=== PATIENT | female | born 1970 | race Caucasian/White ===

== ENCOUNTER 2020-06-07 13:01 | Day surgery (SDC) | payer OTHER ==
[~2020-06-07] VITALS: Ht 157.5 cm; Wt 69.8 kg
[~2020-06-07 13:01] MED LIST: EFFEXOR XR75 MG PO
--- NOTE | 2020-06-07 14:53 | NUR ---
06/07/20 1453 hSe Cotton 1448- PT TO PACU IN LL POSITION. EYES OPEN. ALERT AND ORIENTED. BREATHING EASY AND UNLABORED ON 2 L O2 VIA NC. VSS. 1452- PT EDUCATED ON PACU GOALS AND ENCOURAGED TO PASS GAS. BREATHING EASY AND UNLABORED. SPO2 >95%
--- NOTE | 2020-06-07 21:34 | OR ---
[facility] [address] [place], [place] [address] Signed DATE OF OPERATION: 06/07/2020 SURGEON: Elham Bhat MD PREOPERATIVE DIAGNOSIS: Colon screening; family history of colon cancer (paternal and maternal grandmother). POSTOPERATIVE DIAGNOSIS: Normal colon to cecum. PROCEDURE: Total colonoscopy to cecum. ANESTHESIA: Intravenous sedation, fentanyl 100 mcg and Versed 4 mg. INDICATIONS: This 50-year-old white woman is a patient of Dr. Henri Kenyon and underwent colonoscopy by me in July of 2007, which was normal. At that time, she was seen for family history of colon cancer in multiple family members including her paternal grandmother and her paternal aunt. She has no symptoms of bleeding, diarrhea, or constipation. She is admitted to undergo colonoscopy. She understands the risks of bleeding, infection, and perforation. FINDINGS: The prep was excellent. Complete colonoscopy was undertaken to the cecum without question. She had no findings of polyps, diverticular formation, colitis, or cancer. DESCRIPTION OF PROCEDURE: The patient was brought to the endoscopy suite and placed in lateral decubitus position, given intravenous sedation to the point of slurred speech and nystagmus. Full cardiopulmonary monitoring was maintained. Digital rectal examination was normal. An Olympus video colonoscope was passed into the rectum and manipulated throughout the colon, ultimately intubating the cecum. The ileocecal valve and appendiceal orifice were normal. The scope was withdrawn from that point and examination throughout showed no sign of abnormality specifically no polyps, diverticular formation, colitis, or cancer. Retroflex view was normal as well. The scope was removed. The patient was taken to the recovery room in good condition. Electronically Signed By: ELHAM BHAT MD 06/07/20 2134 PATIENT NAME: JAJA SCOTT OPERATIVE REPORT DATE OF : 68 REPORT #: [id number] PHYSICIAN: ELHAM BHAT MD PCP: HENRI KENYON MD REPORT IS CONFIDENTIAL AND NOT TO BE RELEASED WITHOUT AUTHORIZATION [facility] [address] [facility] [place], [place] [address] Signed CONCLUDING DIAGNOSIS: Normal colon to cecum. PLAN: To return to the ongoing care of Dr. Kenyon. I would recommend routine surveillance colonoscopy in 5 years based on family history or sooner if symptoms should develop. MD CADE Martin/MODL /[id number] cc: Henri Kenyon MD Copies: HENRI KENYON MD ~ Electronically Signed By: ELHAM BHAT MD 06/07/20 2134 PATIENT NAME: JAJA SCOTT OPERATIVE REPORT DATE OF : 68 REPORT #: [id number] PHYSICIAN: ELHAM BHAT MD PCP: HENRI KENYON MD REPORT IS CONFIDENTIAL AND NOT TO BE RELEASED WITHOUT AUTHORIZATION
== END 2020-06-07 15:30 | disposition home or self-care (01) ==
LOC: OPS 13:01 → DS 14:15 → OPS 15:30
PROVIDERS: Surgery
PROC: 0DJD8ZZ Inspection of Lower Intestinal Tract, Via Natural or Artificial Opening Endoscopic (ICD-10-PCS; principal; 2020-06-07 14:15)
DX: Z12.11 Encounter for screening for malignant neoplasm of colon (principal); Z80.0 Family history of malignant neoplasm of digestive organs
CPT/HCPCS: 99153; G0500; J2250; J3010; J7121